=== PATIENT | female | born 1990 | race Caucasian/White ===

== ENCOUNTER 2021-03-14 01:55 | Inpatient (IN) ==
[~2021-03-14 01:55] MED LIST: *HR* Nalbuphine 10 MG/ML AMPUL IV PRN; Famotidine 20 MG/2 ML VIAL IVP PRN; Lidocaine 1% 20 ML MDV INFILT PRN; Metoclopramide 10 MG/2 ML VIAL IVP PRN; Naloxone 0.4 MG/ML INJ IVP PRN
[2021-03-14] MEDS ORDERED: Ringers Solution, Lactated 1,000 ML IVC SCH (02:00)
[2021-03-14 02:30] LABS: Basophils % 0.3 %; Eosinophils # 0.1 K/mcL (0.0-0.6); Eosinophils % 0.5 %; Hematocrit 39.8 % (35.3-44.9); Hemoglobin 13.8 g/dL (11.5-15.4); Immature Granulocytes % 0.4 % (0-4); Lymphocytes # 1.8 K/mcL (0.6-4.6); Lymphocytes % 15.8 %; Mean Corpuscular HGB Conc 34.7 g/dL (31.6-35.5); Mean Corpuscular Hemoglobin 32.8 pg (28.0-33.3); Mean Corpuscular Volume 94.5 fL (83.0-100.0); Mean Platelet Volume 11.2 fL (9.4-12.4); Monocytes # 0.8 K/mcL (0.0-1.3); Monocytes % 7.1 %; Neutrophils # 8.8 K/mcL (1.6-8.9); Platelet Count 178 K/mcL (140-400); Red Blood Count 4.21 M/mcL (3.82-4.97); Red Cell Distribution Width 12.1 % (11.5-14.5); Segmented Neutrophils % 75.9 %; White Blood Count 11.6 K/mcL (4.3-11.1)
[2021-03-14] MEDS ORDERED: Oxytocin 20 units/ LR 1000 mL 20 UNIT/1,000 ML BAG IVC ONE ×2 (02:50→05:44)
[2021-03-14 03:03] LABS: Influenza A PCR Negative (Negative); Influenza B PCR Negative (Negative); Resp. Syncytial Virus PCR Negative (Negative)
[2021-03-14 03:07] LABS: SARS-CoV-2 by PCR (In House) Negative (Negative)
[2021-03-14] MEDS ORDERED: EPHEDrine 50 MG/ML VIAL IVP PRN (05:47)
[2021-03-14] MEDS ORDERED: Epidural Premix (fent/bupiv) 110 ML EP SCH (06:00)
[2021-03-14 06:22] VITALS: O2SAT 98
[2021-03-14] MEDS ORDERED: Benzocaine/Menthol 56 GM AEROSOL SPRAY TP PRN (08:36)
[2021-03-14] MEDS ORDERED: Oxytocin 20 units/ LR 1000 mL 20 UNIT/1,000 ML BAG IVC SCH (08:36)
[2021-03-14] MEDS ORDERED: Lanolin 7 G OINT...G. TP PRN (08:36)
[2021-03-14] MEDS ORDERED: Ondansetron ODT 4 MG TAB.RAPDIS SL PRN (08:36)
[2021-03-14] MEDS ORDERED: Acetaminophen 325 MG TABLET PO SCH (08:36)
[2021-03-14] MEDS: Prenatal Vit/FA 1 EACH TABLET PO SCH (08:56)
[2021-03-14] MEDS: Ibuprofen 600 MG TABLET PO SCH ×2 (08:56→20:30)
[2021-03-14 09:59] LABS: Amphetamine Screen,Urine Negative ng/mL (Cutoff=1000); Barbiturate Screen,Urine Negative ng/mL (Cutoff=200); Benzodiazepines Screen,Urine Negative ng/mL (Cutoff=200); Cannabinoid Screen,Urine Negative ng/mL (Cutoff = 50); Cocaine Screen,Urine Negative ng/mL (Cutoff= 300); Opiate Screen,Urine Negative ng/mL (Cutoff=300); Phencyclidine Screen,Urine Negative ng/mL (Cutoff=25)
[2021-03-14] MEDS ORDERED: Rho Immune Globulin 1,500 UNIT SYRINGE IM ONE (10:52)
[2021-03-15] MEDS: Prenatal Vit/FA 1 EACH TABLET PO SCH (08:01)
[2021-03-15] MEDS: Ibuprofen 600 MG TABLET PO SCH (08:01)
[2021-03-15 08:26] VITALS: BP 112/59; PULSE 85; TEMP 97.6
== END 2021-03-15 10:40 | disposition home or self-care (01) | DRG 807 ==
LOC: 1NENULAB → 1NENUOBS 06:18
PROVIDERS: ADMIT Registered Nurse; ATTEND Registered Nurse